=== PATIENT | female | born 2000 | race Caucasian/White ===

== ENCOUNTER 2025-01-20 21:31 | Emergency (ER) | payer SELFPAY ==
[~2025-01-20] VITALS: Ht 157.5 cm; Wt 58.0 kg
[2025-01-20 21:34] VITALS: BP 132/81; TEMP 97.5; O2SAT 100
[2025-01-20] MEDS ORDERED: SERT25TA85 PO (21:36)
== END 2025-01-21 02:00 | disposition left against medical advice (07) ==
LOC: M ED 21:31
DX: Z53.21 Procedure and treatment not carried out due to patient leaving prior to being seen by health care provider (principal)